=== PATIENT | female | born 2005 | race Hispanic/Latino ===

== ENCOUNTER 2023-02-21 11:49 | Emergency (ER) | payer OTHER ==
--- OUTSIDE RECORDS SUMMARY | 2023-02-21 12:02 | XMS REPORT | Continuity of Care Document ---
:2005 Author Organization [facility] t Address [address] [facility] [address] [place] [address] Care Team Providers Name Role Phone PRO JONES Attending Clinician Unavailable Problems This patient has no known problems. Allergies, Adverse Reactions, Alerts Allergy Allergy Status Severity Reaction(s) Onset Inactive Treating Comm ents Source Name Type Date Date Clinician NO KNOWN Drug Active [facility] ALLERGIE Class it[facility] of [facility] Medications This patient has no known medications. Procedures This patient has no known procedures. Results This patient has no known results.
[2023-02-21] MEDS ORDERED: ONDANSETRON 4 MG/2 ML VIAL ONE (13:39)
[2023-02-21] MEDS ORDERED: NA CHLORIDE 0.9% 1,000 ML ONE (13:39)
[2023-02-21] MEDS ORDERED: FAMOTIDINE 20 MG/2 ML VIAL IV ONE (13:39)
[2023-02-21 13:41] LABS: Absolute Lymphocytes (CBC) 0.8 K/uL (0.7-4.9); Hematocrit 38.7 % (36.0-45.0); Lymphocytes % 12.4 % (15.3-44.8); MCV 80.1 fL (80-100); MPV 7.8 fL (7.6-11.3); RBC Red Blood Cell Count 4.83 M/uL (3.86-4.86)
[2023-02-21 13:55] LABS: Albumin 3.9 g/dL (3.4-5.0); Bilirubin Total 0.5 mg/dL (0.2-1.0); Protein, Total 7.9 g/dL (6.4-8.2)
[2023-02-21 14:02] LABS: Potassium 3.6 mEq/L (3.5-5.1)
[2023-02-21 15:15] LABS: Specific Gravity > 1.030 (1.005-1.030)
--- NOTE | 2023-02-21 15:43 | ER ---
Nurse's Notes [facility] Danika Name: Virginia Zavaleta Age: 17 yrs Sex: Female : 2005 Arrival Date: 02/21/2023 Time: 11:49 Bed DIS2 Private MD: Diagnosis: Nausea with vomiting, unspecified;Diarrhea, unspecified;Dehydration Presentation: 02/21 12:05 Chief complaint: Patient states: "today at 6am, I started vomiting and felt like I was mb9 going to pass out. When I went outside, I got lightheaded. Now I have bad diarrhea but my stomach pain went away this morning". Coronavirus screen: Vaccine status: Patient reports being unvaccinated. Ebola Screen: No symptoms or risks identified at this time. Initial Sepsis Screen: Does the patient meet any 2 criteria? No. Patient's initial sepsis screen is negative. Does the patient have a suspected source of infection? No. Patient's initial sepsis screen is negative. Risk Assessment: Do you want to hurt yourself or someone else? Patient reports no desire to harm self or others. Onset of symptoms. 12:05 Method Of Arrival: Ambulatory mb9 12:05 Acuity: PATRICIO 3 mb9 Triage Assessment: 12:07 General: Appears in no apparent distress. Behavior is calm, cooperative. Pain: Denies mb9 pain. Neuro: Sanchez Agitation-Sedation Scale (RASS): 0 - Alert and Calm. Neuro: Level of Consciousness is awake, alert, obeys commands, Oriented to person, place, time, situation, Appropriate for age. Neuro: Reports dizziness. Cardiovascular: Rhythm is sinus tachycardia. Respiratory: Airway is patent Respiratory effort is even, unlabored, Respiratory pattern is regular, symmetrical. GI: Reports diarrhea, nausea, vomiting. Derm: Skin is pink, warm \\T\\ dry. Musculoskeletal: Range of motion: intact in all extremities. 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 - Social history:: Smoking status: Patient denies any tobacco usage or history of. Screenin:09 [facility] ED Fall Risk Assessment (Adult) History of falling in the last 3 months, mb9 including since admission No falls in past 3 months (0 pts) Confusion or Disorientation No (0 pts) Intoxicated or Sedated No (0 pts) Impaired Gait No (0 pts) Mobility Assist Device Used No (0 pt) Altered Elimination No (0 pt) Score/Fall Risk Level 0 - 2 = Low Risk Oriented to surroundings, Maintained a safe environment, Educated pt \\T\\ family on fall prevention, incl call for assistance when getting out of bed. Abuse screen: Denies threats or abuse. Nutritional screening: No deficits noted. Tuberculosis screening: No symptoms or risk factors identified. Assessment: 13:23 General: Appears in no apparent distress. Behavior is calm, cooperative. Pain: iw Complains of pain in abdomen. Neuro: Level of Consciousness is awake, alert, obeys commands, Oriented to person, place, time, situation, Moves all extremities. Full function. Cardiovascular: Patient's skin is warm and dry. Respiratory: Respiratory effort is even, unlabored, Respiratory pattern is regular, symmetrical. GI: Bowel sounds present X 4 quads. Abd is soft and non tender Reports lower abdominal pain, upper abdominal pain, nausea, vomiting. Vital Signs: 12:05 BP 120 / 76; Pulse 101; Resp 18; Temp 98.6(O); Pulse Ox 98% on R/A; Weight 58.51 kg; mb9 Height 5 ft. 1 in. ; Pain 0/10; 12:05 Body Mass Index 24.37 (58.51 kg, 154.94 cm) mb9 12:05 Pain Scale: Adult mb9 ED Course: 11:53 Patient arrived in ED. mr 11:55 Kacy Osman, V GROOVE CUTTER-C is PHCP. snw 11:55 Asad Ramirez MD is Attending Physician. snw 12:07 Triage completed. mb9 12:07 Arm band placed on. mb9 12:09 No provider procedures requiring assistance completed. mb9 13:24 Patient has correct armband on for positive identification. iw 13:25 CBC with Diff Sent. bc6 13:25 CMP Sent. bc6 13:26 Lipase Sent. bc6 13:26 Inserted saline lock: 20 gauge in right antecubital area, using aseptic technique. bc6 13:29 Jade Kebede, RN is Primary Nurse. iw Administered Medications: 13:42 Drug: NS 0.9% IV 1000 ml Route: IV; Rate: 1 bolus; Site: right antecubital; iw 13:42 Drug: Famotidine IVP 20 mg Route: IVP; Site: right antecubital; iw 13:42 Drug: Ondansetron IVP 4 mg Route: IVP; Site: right antecubital; iw Medication: 12:09 VIS not applicable for this client. mb9 Outcome: 15:43 Discharge ordered by . james 16:00 Patient left the ED. iw Signatures: Kacy Osman, V GROOVE CUTTER-C V GROOVE CUTTER-Csnw Holly Caballero Irene, RN RN iw Breneman, Mary Beth, RN RN mb9 Vianca Branham bc6
--- NOTE | 2023-02-21 15:44 | EDPHYS ---
Physician Documentation [facility] Danika Name: Virginia Zavaleta Age: 17 yrs Sex: Female : 2005 Arrival Date: 02/21/2023 Time: 11:49 Bed DIS2 Private MD: ED Physician Asad Ramirez HPI: 02/21 13:21 This 17 yrs old Female presents to ER via Ambulatory with complaints of snw Abdominal Pain, Vomiting. 13:21 The patient presents with abdominal pain in the lower abdomen. Onset: The snw symptoms/episode began/occurred suddenly, this morning. The symptoms do not radiate. Associated signs and symptoms: Pertinent positives: diarrhea, nausea, vomiting. The symptoms are described as sharp. Severity of pain: At its worst the pain was moderate severe in the emergency department the pain has improved moderately. The patient has not experienced similar symptoms in the past. The patient has not recently seen a physician. 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 - Social history:: Smoking status: Patient denies any tobacco usage or history of. ROS: 13:20 Eyes: Negative for injury, pain, redness, and discharge, ENT: Negative for injury, snw pain, and discharge, Neck: Negative for injury, pain, and swelling, Cardiovascular: Negative for chest pain, palpitations, and edema, Respiratory: Negative for shortness of breath, cough, wheezing, and pleuritic chest pain, Back: Negative for injury and pain, : Negative for injury, bleeding, discharge, and swelling, MS/Extremity: Negative for injury and deformity, Skin: Negative for injury, rash, and discoloration, Psych: Negative for depression, anxiety, suicide ideation, homicidal ideation, and hallucinations. 13:20 Constitutional: Positive for malaise, poor PO intake. 13:20 Abdomen/GI: Positive for nausea, vomiting, and diarrhea. 13:20 Neuro: Positive for dizziness, near syncope. Exam: 13:20 Head/Face: Normocephalic, atraumatic. Eyes: Pupils equal round and reactive to light, snw extra-ocular motions intact. Lids and lashes normal. Conjunctiva and sclera are non-icteric and not injected. Cornea within normal limits. Periorbital areas with no swelling, redness, or edema. ENT: Nares patent. No nasal discharge, no septal abnormalities noted. Tympanic membranes are normal and external auditory canals are clear. Oropharynx with no redness, swelling, or masses, exudates, or evidence of obstruction, uvula midline. Mucous membranes moist. Neck: Trachea midline, no thyromegaly or masses palpated, and no cervical lymphadenopathy. Supple, full range of motion without nuchal rigidity, or vertebral point tenderness. No Meningismus. Chest/axilla: Normal chest wall appearance and motion. Nontender with no deformity. No lesions are appreciated. Cardiovascular: Regular rate and rhythm with a normal S1 and S2. No gallops, murmurs, or rubs. Normal PMI, no JVD. No pulse deficits. Respiratory: Lungs have equal breath sounds bilaterally, clear to auscultation and percussion. No rales, rhonchi or wheezes noted. No increased work of breathing, no retractions or nasal flaring. Abdomen/GI: Soft, non-tender, with normal bowel sounds. No distension or tympany. No guarding or rebound. No evidence of tenderness throughout. Back: No spinal tenderness. No costovertebral tenderness. Full range of motion. Skin: Warm, dry with normal turgor. Normal color with no rashes, no lesions, and no evidence of cellulitis. MS/ Extremity: Pulses equal, no cyanosis. Neurovascular intact. Full, normal range of motion. Neuro: Awake and alert, GCS 15, oriented to person, place, time, and situation. Cranial nerves II-XII grossly intact. Motor strength 5/5 in all extremities. Sensory grossly intact. Cerebellar exam normal. Normal gait. Psych: Awake, alert, with orientation to person, place and time. Behavior, mood, and affect are within normal limits. 13:20 Constitutional: The patient appears alert, awake, listless, pale. Vital Signs: 12:05 BP 120 / 76; Pulse 101; Resp 18; Temp 98.6(O); Pulse Ox 98% on R/A; Weight 58.51 kg; mb9 Height 5 ft. 1 in. ; Pain 0/10; 12:05 Body Mass Index 24.37 (58.51 kg, 154.94 cm) 9 12:05 Pain Scale: Adult mb9 MDM: 12:19 Patient medically screened. snw 15:21 Differential diagnosis: cholecystitis, Cholelithiasis, gastritis, gastroesophageal snw reflux disease, non-specific abd pain, pancreatitis, Pyelonephritis, urinary tract infection. 15:22 Data reviewed: vital signs, nurses notes. I considered the following discharge snw prescriptions or medication management in the emergency department Medications were administered in the Emergency Department. See MAR. Counseling: I had a detailed discussion with the patient and/or guardian regarding: the historical points, exam findings, and any diagnostic results supporting the discharge/admit diagnosis, lab results, the need for outpatient follow up, to return to the emergency department if symptoms worsen or persist or if there are any questions or concerns that arise at home. Response to treatment: the patient's symptoms have markedly improved after treatment. Special discussion: Based on the history and exam findings, there is no indication for further emergent testing or inpatient evaluation. I discussed with the patient/guardian the need to see the primary care provider for further evaluation of the symptoms. 15:42 Awaiting: labs results. ED course: pt states she is feeling better and would like to snw go, awaiting urine test results. pt left department. 02/21 12:24 Order name: CBC with Diff; Complete Time: 14:09 snw 02/21 12:24 Order name: CMP; Complete Time: 14:09 snw 02/21 12:24 Order name: Lipase; Complete Time: 14:09 snw 02/21 12:24 Order name: Test, Urine snw 02/21 12:24 Order name: Urinalysis w/ reflexes; Complete Time: 15:49 snw 02/21 12:24 Order name: IV Saline Lock; Complete Time: 13:25 snw 02/21 12:24 Order name: Labs collected and sent; Complete Time: 13:25 snw Administered Medications: 13:42 Drug: NS 0.9% IV 1000 ml Route: IV; Rate: 1 bolus; Site: right antecubital; iw 13:42 Drug: Famotidine IVP 20 mg Route: IVP; Site: right antecubital; iw 13:42 Drug: Ondansetron IVP 4 mg Route: IVP; Site: right antecubital; Disposition: 17:39 Co-signature as Attending Physician, Asad Ramirez MD I reviewed the patient's care rn provided by the Advanced Practice Provider and agree with the diagnosis and treatment plan. Disposition Summary: 02/21/23 15:43 Discharge Ordered Location: Home snw Condition: Stable snw Diagnosis - Nausea with vomiting, unspecified snw - Diarrhea, unspecified snw - Dehydration snw Followup: snw - With: Emergency Department - When: As needed - Reason: Worsening of condition Followup: snw - With: Private Physician - When: 2 - 3 days - Reason: Recheck today's complaints, Continuance of care, Re-evaluation by your physician Discharge Instructions: - Discharge Summary Sheet snw - Food Choices to Help Relieve Diarrhea, Adult snw - Dehydration, Adult snw - Diarrhea, Adult snw - Nausea and Vomiting, Adult snw - Rehydration, Adult snw Forms: - Work release form snw - Medication Reconciliation Form snw - Thank You Letter snw - Antibiotic Education snw - Prescription Opioid Use snw Prescriptions: - promethazine 25 mg Oral Tablet - take 1 tablet by ORAL route every 6 hours As needed; 20 tablet; Refills: 0, snw Product Selection Permitted Signatures: Dispatcher [employer] Kacy Quintanilla FNP-Cyndie SOFTWARE QA MANAGER-Csnw Jade Kebede, RN Asad Bains MD MD rn Breneman, Mary Beth, RN RN mb9
[2023-02-21 15:47] LABS: Specific Gravity > 1.030 (1.005-1.030); Urine Bacteria None Seen /HPF (<20); Urine Bilirubin NEGATIVE (Negative); Urine Blood 1+ (Negative); Urine Clarity Clear (Clear); Urine Color Yellow (Yellow); Urine Glucose NEGATIVE (Negative); Urine Mucus 2+ /HPF (None Seen); Urine Protein 1+ (Negative); Urine Urobilinogen Normal (Normal)
[2023-02-21 16:30] VITALS: BP 120/76; TEMP 98.6; O2SAT 98
== END 2023-02-21 16:00 | disposition home or self-care (01) ==
LOC: ER 11:49
DX: E86.0 Dehydration (principal); R19.7 Diarrhea, unspecified
CPT/HCPCS: 85025; 81001; 36415; 81025; 83690; 80053; 96375; 96374; 99284; J2405; J7030

== ENCOUNTER 2024-12-06 05:05 | Emergency (ER) | payer OTHER, SELFPAY ==
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
--- NOTE | 2024-12-06 09:40 | RAD REPORT ---
EXAMINATION: CT LUMBAR SPINE WITHOUT CONTRAST CLINICAL INDICATION: Female, 19 years old. NUMBNESS/TINGLING TECHNIQUE: Axial CT images were obtained through the lumbar spine in soft tissue and bone windows wit hout intravenous contrast. Coronal and Sagittal reformatted images were created from the data set. One or more of the following dose reduction techniques were used: Automated exposure control, adjustm ent of the mA and/ or kV according to patient size, and/or iterative reconstruction. Unless otherwise specified, incidental findings do not require dedicated imaging follow-up. COMPARISON: No prior exam. FINDINGS: For purposes of this dictation, it is assumed that there are 5 non rib-bearing lumbar type vertebrae, and the most caudal fully segmented lumbar vertebra is labeled L5. ALIGNMENT: The lumbar spine demonstrates normal alignment without scoliosis or spondylolisthesis. BONES: Transpedicular fusion hardware spanning T12-L3. The right T12 screw partially traverses the me dial right pedicle cortex. The clinical significance of this finding is unclear. Vertebral body heights are preserved. No aggressive osseous lesions. DISCS: Intervertebral disc space heights are maintained. LEVELS: No significant spinal canal or neural foraminal stenosis. No visualized abnormality within th e spinal canal. SOFT TISSUE: No soft tissue abnormalities. IMPRESSION: No acute lumbar spine fracture or subluxation. The right T12 screw partially traverses the medial cortex of the right pedicle, the clinical signific ance of this finding is unclear.
--- NOTE | 2024-12-06 09:51 | RAD REPORT ---
EXAM: CT Thoracic Spine W/o Cont HISTORY: [facility] MAIN PAIN Bed Name: 7 COMPARISON: None TECHNIQUE: Multiple contiguous axial images were obtained in a CT of the thoracic spine without contr ast. Sagittal and coronal reformats were performed. One or more of the following dose reduction techniques were used: Automated exposure control, adjustment of the mA and kV according to patient si ze, and iterative reconstruction. Unless otherwise specified, incidental findings do not require dedicated imaging follow-up. FINDINGS: The vertebral bodies and intervertebral discs demonstrate normal height and alignment without fractur e or subluxation. Sequelae of transpedicular fusion starting T12. The right T12 screw partially traverses the medial cortex of the right pedicle . No degenerative changes are present. . The prevertebral and paraspinal soft tissues are unremarkable. The included portions of the lungs and mediastinum are unremarkable. IMPRESSION: No evidence of acute osseous abnormality or subluxation of the thoracic spine. The right T12 screw partially traverses the medial cortex of the right pedicle, the clinical signific ance of this finding is unclear.
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
[2024-12-06 10:26] VITALS: TEMP 98.5; O2SAT 100
[2024-12-06 10:28] VITALS: BP 109/61
== END 2024-12-06 10:22 | disposition home or self-care (01) ==
LOC: ER 05:05
DX: M54.15 Radiculopathy, thoracolumbar region (principal); R20.2 Paresthesia of skin
CPT/HCPCS: 72128; 72131; 99282